=== PATIENT | male | born 1930 | race Caucasian/White ===

== ENCOUNTER → 2017-04-12 | Outpatient (CLI) | payer MEDICARE, BC ==
--- NOTE | 2017-04-12 18:11 | US ---
EXAMINATION TYPE: US venous doppler duplex UE RT DATE OF EXAM: 04/12/2017 5:50 PM COMPARISON: NONE CLINICAL HISTORY: M79.621 Pain in right upper arm R22.31 Swelling Rt. Rt arm pain post injury SIDE PERFORMED: Right Right Arm: Negative for DVT, Superior, anterior right bicep show a heterogeneous area at pt's pain= 4 .5 cm ?possible muscle tear IMPRESSION: There is patency of the subclavian axillary brachial vein. No evidence of deep venous thrombosis. The re is a 5 cm complex area in the biceps muscle in the area of pain consistent with hematoma or muscle tear.
== END | disposition home or self-care (01) ==
LOC: RADUSMAIN 17:32
PROVIDERS: ATTEND Internal Medicine
DX: R93.7 Abnormal findings on diagnostic imaging of other parts of musculoskeletal system (principal); M79.621 Pain in right upper arm; R22.31 Localized swelling, mass and lump, right upper limb

== ENCOUNTER → 2017-05-27 | Outpatient (CLI) | payer MEDICARE, BC ==
[2017-05-27 07:11] LABS: CH 31.1; CHCM 32.4; HDW 2.48; HGB 14.4 gm/dL (13.0-17.5); MCH 31.6 pg (25.0-35.0); MCHC 32.7 g/dL (31.0-37.0); MCV 96.7 fL (80.0-100.0); Mean Platelet Volume 7.4; RBC 4.55 m/uL (4.30-5.90); RDW 13.6 % (11.5-15.5); WBC 6.8 k/uL (3.8-10.6)
[2017-05-27 07:19] LABS: ALT 24 U/L (21-72); AST 16 U/L (17-59); Alkaline Phosphatase 70 U/L (38-126); Anion Gap 14 mmol/L; Blood Urea Nitrogen 27 mg/dL (9-20); Calcium 9.8 mg/dL (8.4-10.2); Carbon Dioxide 25 mmol/L (22-30); Chloride 105 mmol/L (98-107); Cholesterol 138 mg/dL (<200); Glucose 141 mg/dL (74-99); HDL Cholesterol 42 mg/dL (40-60); Non-African American GFR(MDRD) 59 (>60 ml/min/1.73 sqM); Sodium 144 mmol/L (137-145); Total Bilirubin 0.9 mg/dL (0.2-1.3); Total Protein 7.5 g/dL (6.3-8.2); Triglycerides 92 mg/dL (<150)
== END | disposition home or self-care (01) ==
LOC: LABWHC1 06:35
PROVIDERS: ATTEND Internal Medicine
DX: I11.9 Hypertensive heart disease without heart failure (principal); E11.9 Type 2 diabetes mellitus without complications; E78.2 Mixed hyperlipidemia
CPT/HCPCS: 36415; 80053; 80061; 83036; 85027

== ENCOUNTER → 2018-05-20 | Outpatient (CLI) | payer MEDICARE, BC ==
[2018-05-20 07:19] LABS: Calcium 9.8 mg/dL (8.4-10.2); Potassium 4.2 mmol/L (3.5-5.1)
== END | disposition home or self-care (01) ==
LOC: LABWHC1 06:31
PROVIDERS: ATTEND Internal Medicine
DX: I11.9 Hypertensive heart disease without heart failure (principal); E11.9 Type 2 diabetes mellitus without complications
CPT/HCPCS: 36415; 80048; 83036

== ENCOUNTER → 2018-11-04 | Outpatient (CLI) | payer MEDICARE, BC | END | disposition home or self-care (01) | LOC: LABWHC1 06:58 | PROVIDERS: ATTEND Urology | DX: C61 Malignant neoplasm of prostate (principal) | CPT/HCPCS: 36415; 84153 ==

== ENCOUNTER → 2018-11-13 | Outpatient (CLI) | payer MEDICARE, BC ==
--- NOTE | 2018-11-13 20:20 | CONS ---
CONSULTATION DATE OF SERVICE: 11/13/2018 This patient is an 88-year-old gentleman who has been evaluated in the sleep center for possible obstructive sleep apnea-hypopnea syndrome. HISTORY OF PRESENT ILLNESS/SLEEP-WAKE EVALUATION: Patient's usual sleep schedule is from 9 or 9:30 p.m. until 5 a.m. Sometimes he has problems with falling asleep, although no TV in the bedroom. He wakes up from sleep with nocturia. During the day he may take one nap in the middle of the afternoon. [place] Sleepiness Scale is 3. PAST MEDICAL HISTORY: Positive for: 1. Coronary artery disease. 2. CABG. 3. Hypertension. 4. Hyperlipidemia. 5. BPH. 6. Cardiac arrhythmia. PAST SURGICAL HISTORY: 1. CABG. 2. Bilateral cataract surgery. 3. Surgery for colon cancer in 1996. 4. Bladder cancer in 2008. 5. Lip cancer in 2011. SOCIAL HISTORY: Positive for smoking many years ago in the range of 1968. He smoked for about 18 years, one pack a day. Alcohol consumption none at the present time. REVIEW OF SYSTEMS: Sometimes awakenings from sleep, sometimes tiredness and sleepiness during the day. FAMILY HISTORY: Hypertension, angina, heart problems, hyperlipidemia, cancer, diabetes, crib . PHYSICAL EXAMINATION: GENERAL: A pleasant 88-year-old gentleman without distress. VITAL SIGNS: BP 141/96, HR 95, RR 18, height 5 feet 5-1/2 inches, weight 194.8 pounds, body mass index 31.7, temperature 98.4, oxygen saturation at room air 96%. HEENT: PERRLA, EOMI. Evaluation of oropharynx showed tongue protrudes midline. Moderately low position of soft palate. Some restriction of nasal breathing. NECK: Supple. No JVD. Thyroid is not palpable. LUNGS: Clear to percussion and to auscultation. Good air exchange. No wheezing or rhonchi. HEART: S1, S2 regular. No murmurs, gallops or rubs. ABDOMEN: Slightly obese. EXTREMITIES: One plus bilateral ankle edema. PRESIDENT AND CEO: Awake, alert, and oriented X3. Cranial nerves 2 to 7 intact. There is no fasciculation or atrophy. noted. No focal deficits observed. IMPRESSION: 1. Snoring, awakenings from sleep with nocturia, low position of soft palate, wide neck, slight restriction of nasal breathing; possible obstructive sleep apnea- hypopnea syndrome. 2. Mild obesity; body mass index 31.7. 3. Hypertension. 4. Coronary artery disease, status post coronary artery bypass grafting. 5. History of episodes of cardiac arrhythmia. 6. History of bladder cancer, status post chemotherapy. 7. Status post bilateral cataract surgery. 8. Status post surgical treatment for colon cancer. 9. Status post surgical treatment for lip cancer. PLAN: 1. Polysomnography for evaluation of patient's breathing during sleep. 2. CPAP/BiPAP titration if sleep study confirms obstructive sleep apnea-hypopnea syndrome. 3. Preferable position during sleep on the side. 4. No driving if patient feels any sleepiness. 5. I will see patient for follow up visit to explain results of testing and following plan. Thank you very much for referring this patient for consultation. Sincerely, Juvencio Serrano MD, PhD, FAASM Diplomat of [employer] Software Client [facility] [id number] / IJN: [id number] /
== END ==
LOC: SLEEP 13:59
PROVIDERS: ATTEND Internal Medicine
DX: R06.83 Snoring (principal); E66.9 Obesity, unspecified; I10 Essential (primary) hypertension; I25.10 Atherosclerotic heart disease of native coronary artery without angina pectoris; Z95.1 Presence of aortocoronary bypass graft; I49.9 Cardiac arrhythmia, unspecified; Z68.31 Body mass index [BMI] 31.0-31.9, adult; Z98.42 Cataract extraction status, left eye; Z98.41 Cataract extraction status, right eye; Z98.890 Other specified postprocedural states; Z85.51 Personal history of malignant neoplasm of bladder; Z85.819 Personal history of malignant neoplasm of unspecified site of lip, oral cavity, and pharynx; Z85.038 Personal history of other malignant neoplasm of large intestine; Z99.89 Dependence on other enabling machines and devices; Z87.891 Personal history of nicotine dependence
CPT/HCPCS: 99211

== ENCOUNTER → 2019-02-19 | Outpatient (CLI) | payer MEDICARE, BC ==
--- NOTE | 2019-02-19 15:07 | SFUN ---
SLEEP CENTER FOLLOW UP NOTE DATE OF SERVICE: 02/19/2019 An 88-year-old gentleman who has been followed in the Sleep Center for treatment of obstructive sleep apnea-hypopnea syndrome. Recently patient had diagnostic polysomnogram and CPAP titration. Diagnostic polysomnogram showed severe sleep apnea with apnea-hypopnea index 69 and oxygen desaturation to 65.7%. During polysomnogram on BiPAP, respiration was improved. Presently, patient is on treatment with BiPAP. Today is his first visit after he started to use his BiPAP. His mask has been changed to different size because of the leak from full-face mask. I checked BiPAP unit. Usage is every night for the whole night. Average usage 6.5 hours. Pressure is 13/9 cm of water. Leak is 13 L/minute, which is acceptable. Apnea- hypopnea index reading 12.2. [place] Sleepiness Scale today is only 1. MEDICATIONS: Eliquis, fenestrated, metoprolol, tamsulosin, losartan, atorvastatin. PHYSICAL EXAM: Patient in no distress. BP 155/82, HR 103, RR 18, weight 196, temp 97.9, oxygen saturation at room air 95%. OROPHARYNX: Extremely low position of soft palate. HEART: S1, S2 irregularly, irregular. ABDOMEN: Slightly obese. EXTREMITIES: 1+ bilateral ankle edema. IMPRESSION: 1. Severe obstructive sleep apnea-hypopnea syndrome, apnea-hypopnea index 69 with severe oxygen desaturation to 65.7%, improved on BiPAP. Patient demonstrated 100% compliance with treatment, benefitting from treatment. 2. Obesity. 3. Moderate periodic limb movements have been documented during the sleep study. 4. Atrial fibrillation. 5. Coronary artery disease, status post coronary artery status post coronary artery bypass grafting. 6. History of bladder carcinoma, status post chemotherapy. 7. Status post bilateral cataract surgery. 8. Status post surgical treatment for colon cancer. 9. Status post surgical treatment for lip cancer. PLAN: 1. Patient will continue to use BiPAP equipment every night for the whole night. I will increase pressure to 14/10 cm of water. 2. Sleep hygiene with regular time in bed for at least 8 hours. 3. No driving if feeling sleepiness. 4. Losing weight. Thank you very much for allowing me to participate in the management of your patient. Sincerely, Juvencio Serrano MD, PhD, FAASM Diplomat of [employer] [place] [place] [employer] Biological Science Technician [facility] [place] [id number] / THELMAN: [id number] /
== END ==
LOC: SLEEP 13:39
PROVIDERS: ATTEND Internal Medicine
DX: G47.33 Obstructive sleep apnea (adult) (pediatric) (principal); E66.9 Obesity, unspecified; I48.91 Unspecified atrial fibrillation; I25.10 Atherosclerotic heart disease of native coronary artery without angina pectoris; C67.9 Malignant neoplasm of bladder, unspecified; Z92.21 Personal history of antineoplastic chemotherapy; Z98.890 Other specified postprocedural states; Z95.5 Presence of coronary angioplasty implant and graft; Z99.89 Dependence on other enabling machines and devices; Z79.01 Long term (current) use of anticoagulants; Z79.899 Other long term (current) drug therapy